=== PATIENT | female | born 1960 | race Caucasian/White ===

== ENCOUNTER 2016-10-14 06:07 | Emergency (ER) | payer BC ==
--- NOTE | 2016-10-14 08:24 | ED ORDER SUMMARY ---
..... Patient: JENNA COBIAN OrderSheet [facility] VisitID: [id number] [place] [address] 55y, F Registration Date/Time: 10/14/2016 ORDER SHEET Weight: 58.9 kg (stated) Allergies: Demerol, Dilaudid, OxyCONTIN, Augmentin GENERAL ORDERS: Wrist 3 or 4V Right Urgent (06:58 10/14/2016 Kashmir TAI) (Ack 7:04 RKaruga) (7:11 JSanders R.N.) Splint (UE) (Right) (Velcro - wrist) (08:11 10/14/2016 Kashmir TAI) (Ack 8:21 MWinterer R.N.) (8:35 JBoarmacarenay R.N.) MEDICATION ORDERS: Augmentin PO 875 mg (NOW) (06:44 10/14/2016 Williams R.N. verbal order read back to Kashmir TAI) (Ack 6:47 JSanders R.N.) (Cancelled: Allergy6:55 JSanders R.N.) Bactrim DS PO (Tablet 800-160 mg) 1 tab (NOW) (06:54 10/14/2016 Kashmir TAI) (Ack 6:55 JSanders R.N.) (6:57 JSanders R.N.) Oxycodone-APAP PO 5/325 mg (NOW) (08:11 10/14/2016 Kashmir TAI) (Ack 8:14 JBoardley R.N.) (8:15 JBoardley R.N.) IV FLUIDS: ORDER SHEET NOTES: [Electronically signed by Lester Perez R.N. (09:09 10/14/2016)] [Electronically signed by Manas Guerrier MD (23:11 10/26/2016)] [Electronically locked/signed by Lester Perez R.N. (09:09 10/14/2016)]
--- NOTE | 2016-10-14 08:24 | ED CLINICAL REPORT ---
Clinical Report - Physicians/Mid Levels [facility] [address] [place] [address] 10/14/2016 6:08 Patient: JENNA COBIAN Time Seen: 06:51 Oct 14 2016. Arrived- By private vehicle. Historian- patient. CPT: ER phys charges level 4 (#[id number]). HISTORY OF PRESENT ILLNESS Chief Complaint: DOG BITE. Location of injuries- (Location of injuries: right forearm and left wrist. This occurred just prior to arrival. Animals were fighting. ( Dog had all its shots including rabies).). The injury occurred just prior to arrival. The animal reportedly appeared well. Occurred at home. Animals were fighting. 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 REVIEW OF SYSTEMS No swelling, numbness, weakness, tingling or fever. No joint pain or enlarged lymph nodes. All systems otherwise negative, except as recorded above. PAST HISTORY See nurses notes. Abrasion(s). UTI - Urinary Tract Infection. Crush Injury, Upper Extremity. Fractured Phalanx (Finger). Back Pain. Laceration. Additional Surgeries: no known surgeries. Medications: ZyrTEC Allergy Childrens Oral. FLUoxetine HCl Oral 30mg, at bedtime. Allergies: Augmentin.(vomiting) Demerol. Dilaudid. OxyCONTIN.(nausea). SOCIAL HISTORY History of drug use: marijuana. No alcohol use. ADDITIONAL NOTES The nursing notes have been reviewed. PHYSICAL EXAM Vital Signs: 10/14/2016 06:12 BP: 120/57. HR: 46. RR: 18. O2 saturation: 98%. Temp: 97.6 F. Pain level now: 10/10. Appearance: Alert. Head: Head normal on inspection and non-tender. ENT: Mouth normal on inspection. Neck: Normal inspection. CVS: Heart sounds normal. Pulses normal. Respiratory: Chest normal on inspection. Chest nontender. Abdomen: Nontender. Back: Normal inspection. Skin: Skin warm. Normal skin color. Extremities: Right forearm: subcutaneous 1.0 cm laceration and multiple puncture wounds located in the mid and distal forearm. SEE LACERATION PROCEDURE NOTE #1. Left forearm: multiple puncture wounds (much fewer than the right arm.). Neuro: Oriented X 3. No motor deficit. No sensory deficit. LABS, X-RAYS, AND EKG X-Rays: Right wrist negative. PROGRESS AND PROCEDURES Laceration Repair: Location: right forearm. Length: 1 cm. Complexity: simple (local anesthesia used and sutured). Wound depth/shape- subcutaneous and linear. Wound is clean. Distal neuro/vascular/tendon status normal. Anesthesia provided using 2% lidocaine with bicarb. Prepped with Hibiclens. Wound explored, cleansed, irrigated and examined to the base in bloodless field extensively with normal saline. Closure of skin: interrupted 4-0 (2 sutures). Post-procedure: she is stable and there are no complications. Bleeding is controlled and neuro-vascular status is intact distal to the wound. Dressing applied. Tetanus immunization up-to-date. Course of Care: All wounds washed extensively with soap and water by staff. Bactrim 1 po percocet 1 po Patient is stable. Patient/family counseled. Disposition: Discharged. Condition: stable. CLINICAL IMPRESSION Superficial and deep dog bite to the right forearm and left forearm. Laceration to the right forearm.No foreign body present. INSTRUCTIONS Wear canvas splint until better. Protect wound and keep wound area clean. Soak in warm soapy water twice daily. Apply neosporin twice daily. Return to work in three days (Light duty: Wear splint and do not use the right hand until released by your Doctor.). Do not work for three days until better. Warnings: SEDATIVE MEDICATION: You were given sedative medication during your visit. Do not drive or operate dangerous machinery. Your Current Medications: CONTINUE TAKING THE FOLLOWING MEDICATIONS: FLUoxetine HCl Oral : 30mg at bedtime. ZyrTEC Allergy Childrens Oral. Prescription Medications: Oxycodone/APAP 5 mg/325 mg: take 1-2 tablets orally every 6 hours as needed for pain. Dispense fifteen (15). No refill. Bactrim DS 800 mg / 160 mg: take 1 tablet orally every 12 hours for 7 days. No refill. Follow-up: Follow up with your doctor in two days. Call for an appointment. Understanding of the discharge instructions verbalized by patient. (Electronically signed by Manas Guerrier MD 10/26/2016 23:11)
--- NOTE | 2016-10-14 08:24 | ED NURSING NOTES ---
Clinical Report - Nurses [facility] [address] [place] [address] 10/14/2016 6:08 [id number] TRI[facility] Triage time 06:12 Oct 14 2016. Acuity: LEVEL 4. Chief Complaint: DOG BITE. 06:19 10/14/16. SEPSIS SCREEN: Sepsis Screen. Negative (no infection suspected/documented). SUSANNAH COMA SCORE: [place] Coma Scale: 15- eyes open spontaneously (4); best verbal response- oriented x 4 (5); best motor response- obeys commands (6). --06:19 Sarah Acosta R.N. 06:12 10/14/16. BP: 120/57 (regular adult cuff) taken on the left arm. HR: 46. RR: 18. O2 saturation: 98% on room air. Temp: 97.6 F (oral). Pain level now: 01/20. --06:19 Sarah Acosta R.N. Weight: 58.9 kg stated. Height/Length: 63 inches Per Patient. BMI: 23. --06:15 Sarah Acosta R.N. Medications FLUoxetine HCl Oral 30mg, at bedtime. --06:14 Sarah Acosta R.N. ZyrTEC Allergy Childrens Oral. --06:15 Sarah Acosta R.N. Allergies Demerol. Dilaudid. OxyCONTIN.(nausea) --06:15 Sarah Acosta R.N. Augmentin.(vomiting) --06:54 Sarah Acosta R.N. The following entry was struck and corrected by Sarah Acosta R.N., 06:54 (10/14/16) Reason for correction - other(correction). <<STRICKEN ENTRY-- Augmentin. --06:54 Sarah Acosta R.N. --END STRIKE>>. History Arrived by private vehicle. Historian: patient. Location of injuries: right forearm and left wrist. This occurred just prior to arrival. Animals were fighting. ( Dog had all its shots including rabies). 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 PAST MEDICAL HX: Tetanus status: up-to-date. SOCIAL HX: Smoker- current status unknown. History of occasional drug use: marijuana. No alcohol use. No infectious disease exposure. ABUSE ASSESSMENT: No report of abuse. SELF HARM ASSESSMENT: A self harm assessment was performed. The patient answered "no" to the question "Do you have thoughts of harming or killing yourself?" and "Have you recently had thoughts about harming or killing others?". --06:19 Sarah Acosta R.N. PROBLEMS: Abrasion(s). UTI - Urinary Tract Infection. Crush Injury, Upper Extremity. Fractured Phalanx (Finger). Back Pain. Laceration. --06:16 Sarah Acosta R.N. ADDITIONAL SURGERIES: no known surgeries. Interventions ID band on patient. To treatment room. --06:19 Sarah Acosta R.N. PHYSICAL ASSESSMENT Ambulatory to room. GENERAL / NEURO / PSYCH: Alert. Oriented X 4. Appears in no acute distress. Appears in pain. HEENT: Pupils equal, round and reactive to light. Head non-tender. RESPIRATORY: Respirations not labored. Breath sounds within normal limits. CVS: Normal heart rate and rhythm. Pulses within normal limits. Capillary refill less than 2 seconds. GI / : Abdomen soft and nontender. EXTREMITIES: Extremities exhibit normal ROM. Right forearm: tenderness, swelling, erythema and multiple puncture wounds. Left wrist: tenderness, swelling, erythema and multiple puncture wounds. SKIN: Skin is warm and dry. --06:20 aSrah Acosta R.N. NURSING PROGRESS NOTES 06:20 10/14/16. The plan of care for this patient has been created. Extremity elevated. Reassurance given. Two patient identifiers checked. Call light placed in reach. Side rails up x 1. Bed placed in lowest position. Brakes of bed on. Patient ready for evaluation- chart flagged and ED physician notified. --06:20 Sarah Acosta R.N. 06:29 10/14/16. ( Wounds cleansed bilat arms with hibacleanse and sterile water). --06:29 Sarah Acosta R.N. 06:57 10/14/2016 Bactrim DS (Sulfamethoxazole-TMP DS) PO Tablets 1 tab given. Allergies verified and confirmed 5 rights. --06:57 Sarah Acosta R.N. 07:01 10/14/16. ( Xray in with patient). --07:01 Sarah Acosta R.N. late entry - 07:05 10/14/16. ( xray done). --07:10 Sarah Acosta R.N. Care transferred and report given (VIKRAM Saucedo). --07:10 Sarah Acosta R.N. 08:15 10/14/2016 Oxycodone-APAP (Oxycodone-Acetaminophen) PO 5/325 mg Tablets 1 tab given. Allergies verified, confirmed 5 rights and sedative warning given to the patient. --08:15 Lester Perez R.N. Applied clean dressing consisting of gauze, following the application of antibiotic ointment (bacitracin). Secured with tape. Velcro upper extremity splint applied to right forearm. Distal pulses intact, sensation intact and motor within normal limits. --08:55 Abelardo Barron, ER Tech1. DISPOSITION / DISCHARGE 08:42 10/14/16. Condition at departure: improved. The goals identified in the patient's plan of care were met. No learning barriers present. Discharge instructions provided and reviewed with the patient. Reviewed warnings. Reviewed medication(s). Treatments reviewed. Patient verbalized understanding. Written instructions provided in Latvian. ( Pt will follow up in 2 days with PCP or walk in clinic for wound check. Pt states Tetanus is up to date). The patient was discharged by the physician. She was discharged home. She left the Emergency Department ambulatory. FALL RISK ASSESSMENT: Fall risk assessment completed. No fall risk identified. --08:42 Lester Perez R.N. 08:39 10/14/16. BP: 118/68. HR: 66. RR: 16. O2 saturation: 99% on room air. Temp: 98.2 F (oral). Pain level now: 06/20. --08:42 Lester Perez R.N. 08:44 10/14/16. Departure time: 08:44 Oct 14 2016. --08:44 Lester Perez R.N. 08:45 10/14/16. ( One suture pack used for wound repair). --08:45 Lester Perez R.N. Locked/Released at 10/14/2016 9:09 by Lester Perez R.N.
--- NOTE | 2016-10-14 08:24 | ED NURSING NOTES ---
Clinical Report - Nurses [facility] [address] [place] [address] 10/14/2016 6:08 [id number] Triage time 06:12 Oct 14 2016. Acuity: LEVEL 4. Chief Complaint: DOG BITE. 06:19 10/14/16. SEPSIS SCREEN: Sepsis Screen. Negative (no infection suspected/documented). SUSANNAH COMA SCORE: [place] Coma Scale: 15- eyes open spontaneously (4); best verbal response- oriented x 4 (5); best motor response- obeys commands (6). --06:19 Sarah Acosta R.N. 06:12 10/14/16. BP: 120/57 (regular adult cuff) taken on the left arm. HR: 46. RR: 18. O2 saturation: 98% on room air. Temp: 97.6 F (oral). Pain level now: 01/20. --06:19 Sarah Acosta R.N. Weight: 58.9 kg stated. Height/Length: 63 inches Per Patient. BMI: 23. --06:15 Sarah Acosta R.N. Medications FLUoxetine HCl Oral 30mg, at bedtime. --06:14 Sarah Acosta R.N. ZyrTEC Allergy Childrens Oral. --06:15 Sarah Acosta R.N. Allergies Demerol. Dilaudid. OxyCONTIN.(nausea) --06:15 Sarah Acosta R.N. Augmentin.(vomiting) --06:54 Sarah Acosta R.N. The following entry was struck and corrected by Sarah Acosta R.N., 06:54 (10/14/16) Reason for correction - other(correction). <<STRICKEN ENTRY-- Augmentin. --06:54 Sarah Acosta R.N. --END STRIKE>>. History Arrived by private vehicle. Historian: patient. Location of injuries: right forearm and left wrist. This occurred just prior to arrival. Animals were fighting. ( Dog had all its shots including rabies). 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 PAST MEDICAL HX: Tetanus status: up-to-date. SOCIAL HX: Smoker- current status unknown. History of occasional drug use: marijuana. No alcohol use. No infectious disease exposure. ABUSE ASSESSMENT: No report of abuse. SELF HARM ASSESSMENT: A self harm assessment was performed. The patient answered "no" to the question "Do you have thoughts of harming or killing yourself?" and "Have you recently had thoughts about harming or killing others?". --06:19 Sarah Acosta R.N. PROBLEMS: Abrasion(s). UTI - Urinary Tract Infection. Crush Injury, Upper Extremity. Fractured Phalanx (Finger). Back Pain. Laceration. --06:16 Sarah Acosta R.N. ADDITIONAL SURGERIES: no known surgeries. Interventions ID band on patient. To treatment room. --06:19 Sarah Acosta R.N. PHYSICAL ASSESSMENT Ambulatory to room. GENERAL / NEURO / PSYCH: Alert. Oriented X 4. Appears in no acute distress. Appears in pain. HEENT: Pupils equal, round and reactive to light. Head non-tender. RESPIRATORY: Respirations not labored. Breath sounds within normal limits. CVS: Normal heart rate and rhythm. Pulses within normal limits. Capillary refill less than 2 seconds. GI / : Abdomen soft and nontender. EXTREMITIES: Extremities exhibit normal ROM. Right forearm: tenderness, swelling, erythema and multiple puncture wounds. Left wrist: tenderness, swelling, erythema and multiple puncture wounds. SKIN: Skin is warm and dry. --06:20 Sarah Acosta R.N. NURSING PROGRESS NOTES 06:20 10/14/16. The plan of care for this patient has been created. Extremity elevated. Reassurance given. Two patient identifiers checked. Call light placed in reach. Side rails up x 1. Bed placed in lowest position. Brakes of bed on. Patient ready for evaluation- chart flagged and ED physician notified. --06:20 Sarah Acosta R.N. 06:29 10/14/16. ( Wounds cleansed bilat arms with hibacleanse and sterile water). --06:29 Sarah Acosta R.N. 06:57 10/14/2016 Bactrim DS (Sulfamethoxazole-TMP DS) PO Tablets 1 tab given. Allergies verified and confirmed 5 rights. --06:57 Sarah Acosta R.N. 07:01 10/14/16. ( Xray in with patient). --07:01 Sarah Acosta R.N. late entry - 07:05 10/14/16. ( xray done). --07:10 Sarah Acosta R.N. Care transferred and report given (VIKRAM Saucedo). --07:10 Sarah Acosta R.N. 08:15 10/14/2016 Oxycodone-APAP (Oxycodone-Acetaminophen) PO 5/325 mg Tablets 1 tab given. Allergies verified, confirmed 5 rights and sedative warning given to the patient. --08:15 Lester Perez R.N. Applied clean dressing consisting of gauze, following the application of antibiotic ointment (bacitracin). Secured with tape. Velcro upper extremity splint applied to right forearm. Distal pulses intact, sensation intact and motor within normal limits. --08:55 Abelardo Barron, ER Tech1. DISPOSITION / DISCHARGE 08:42 10/14/16. Condition at departure: improved. The goals identified in the patient's plan of care were met. No learning barriers present. Discharge instructions provided and reviewed with the patient. Reviewed warnings. Reviewed medication(s). Treatments reviewed. Patient verbalized understanding. Written instructions provided in Togolese. ( Pt will follow up in 2 days with PCP or walk in clinic for wound check. Pt states Tetanus is up to date). The patient was discharged by the physician. She was discharged home. She left the Emergency Department ambulatory. FALL RISK ASSESSMENT: Fall risk assessment completed. No fall risk identified. --08:42 Lester Perez R.N. 08:39 10/14/16. BP: 118/68. HR: 66. RR: 16. O2 saturation: 99% on room air. Temp: 98.2 F (oral). Pain level now: 06/20. --08:42 Lester Perez R.N. 08:44 10/14/16. Departure time: 08:44 Oct 14 2016. --08:44 Lester Perez R.N. 08:45 10/14/16. ( One suture pack used for wound repair). --08:45 Lester Perez R.N. Locked/Released at 10/14/2016 9:09 by Lester Perez R.N.
--- NOTE | 2016-10-14 08:24 | ED ORDER SUMMARY ---
..... Patient: JENNA COBIAN OrderSheet [facility] VisitID: [id number] [place] [address] 55y, F Registration Date/Time: 10/14/2016 ORDER SHEET Weight: 58.9 kg (stated) Allergies: Demerol, Dilaudid, OxyCONTIN, Augmentin GENERAL ORDERS: Wrist 3 or 4V Right Urgent (06:58 10/14/2016 Kashmir TAI) (Ack 7:04 RKaruga) (7:11 JSanders R.N.) Splint (UE) (Right) (Velcro - wrist) (08:11 10/14/2016 Kashmir TAI) (Ack 8:21 MWinterer R.N.) (8:35 JBoarmacarenay R.N.) MEDICATION ORDERS: Augmentin PO 875 mg (NOW) (06:44 10/14/2016 Williams R.N. verbal order read back to Kashmir TAI) (Ack 6:47 JSanders R.N.) (Cancelled: Allergy6:55 JSanders R.N.) Bactrim DS PO (Tablet 800-160 mg) 1 tab (NOW) (06:54 10/14/2016 Kashmir TAI) (Ack 6:55 JSanders R.N.) (6:57 JSanders R.N.) Oxycodone-APAP PO 5/325 mg (NOW) (08:11 10/14/2016 Kashmir TAI) (Ack 8:14 JBoardley R.N.) (8:15 JBoardley R.N.) IV FLUIDS: ORDER SHEET NOTES: [Electronically signed by Lester Perez R.N. (09:09 10/14/2016)] [Electronically signed by Manas Guerrier MD (23:11 10/26/2016)] [Electronically locked/signed by Lester Perez R.N. (09:09 10/14/2016)]
--- NOTE | 2016-10-14 08:24 | ED CLINICAL REPORT ---
Clinical Report - Physicians/Mid Levels [facility] [address] [place] [address] 10/14/2016 6:08 Patient: JENNA COBIAN Time Seen: 06:51 Oct 14 2016. Arrived- By private vehicle. Historian- patient. CPT: ER phys charges level 4 (#[id number]). HISTORY OF PRESENT ILLNESS Chief Complaint: DOG BITE. Location of injuries- (Location of injuries: right forearm and left wrist. This occurred just prior to arrival. Animals were fighting. ( Dog had all its shots including rabies).). The injury occurred just prior to arrival. The animal reportedly appeared well. Occurred at home. Animals were fighting. 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 REVIEW OF SYSTEMS No swelling, numbness, weakness, tingling or fever. No joint pain or enlarged lymph nodes. All systems otherwise negative, except as recorded above. PAST HISTORY See nurses notes. Abrasion(s). UTI - Urinary Tract Infection. Crush Injury, Upper Extremity. Fractured Phalanx (Finger). Back Pain. Laceration. Additional Surgeries: no known surgeries. Medications: ZyrTEC Allergy Childrens Oral. FLUoxetine HCl Oral 30mg, at bedtime. Allergies: Augmentin.(vomiting) Demerol. Dilaudid. OxyCONTIN.(nausea). SOCIAL HISTORY History of drug use: marijuana. No alcohol use. ADDITIONAL NOTES The nursing notes have been reviewed. PHYSICAL EXAM Vital Signs: 10/14/2016 06:12 BP: 120/57. HR: 46. RR: 18. O2 saturation: 98%. Temp: 97.6 F. Pain level now: 10/10. Appearance: Alert. Head: Head normal on inspection and non-tender. ENT: Mouth normal on inspection. Neck: Normal inspection. CVS: Heart sounds normal. Pulses normal. Respiratory: Chest normal on inspection. Chest nontender. Abdomen: Nontender. Back: Normal inspection. Skin: Skin warm. Normal skin color. Extremities: Right forearm: subcutaneous 1.0 cm laceration and multiple puncture wounds located in the mid and distal forearm. SEE LACERATION PROCEDURE NOTE #1. Left forearm: multiple puncture wounds (much fewer than the right arm.). Neuro: Oriented X 3. No motor deficit. No sensory deficit. LABS, X-RAYS, AND EKG X-Rays: Right wrist negative. PROGRESS AND PROCEDURES Laceration Repair: Location: right forearm. Length: 1 cm. Complexity: simple (local anesthesia used and sutured). Wound depth/shape- subcutaneous and linear. Wound is clean. Distal neuro/vascular/tendon status normal. Anesthesia provided using 2% lidocaine with bicarb. Prepped with Hibiclens. Wound explored, cleansed, irrigated and examined to the base in bloodless field extensively with normal saline. Closure of skin: interrupted 4-0 (2 sutures). Post-procedure: she is stable and there are no complications. Bleeding is controlled and neuro-vascular status is intact distal to the wound. Dressing applied. Tetanus immunization up-to-date. Course of Care: All wounds washed extensively with soap and water by staff. Bactrim 1 po percocet 1 po Patient is stable. Patient/family counseled. Disposition: Discharged. Condition: stable. CLINICAL IMPRESSION Superficial and deep dog bite to the right forearm and left forearm. Laceration to the right forearm.No foreign body present. INSTRUCTIONS Wear canvas splint until better. Protect wound and keep wound area clean. Soak in warm soapy water twice daily. Apply neosporin twice daily. Return to work in three days (Light duty: Wear splint and do not use the right hand until released by your Doctor.). Do not work for three days until better. Warnings: SEDATIVE MEDICATION: You were given sedative medication during your visit. Do not drive or operate dangerous machinery. Your Current Medications: CONTINUE TAKING THE FOLLOWING MEDICATIONS: FLUoxetine HCl Oral : 30mg at bedtime. ZyrTEC Allergy Childrens Oral. Prescription Medications: Oxycodone/APAP 5 mg/325 mg: take 1-2 tablets orally every 6 hours as needed for pain. Dispense fifteen (15). No refill. Bactrim DS 800 mg / 160 mg: take 1 tablet orally every 12 hours for 7 days. No refill. Follow-up: Follow up with your doctor in two days. Call for an appointment. Understanding of the discharge instructions verbalized by patient. (Electronically signed by Manas Guerrier MD 10/26/2016 23:11)
--- NOTE | 2016-10-14 09:11 | DIAGNOSTIC IMAGING REPORT ---
PROCEDURE: XR WRIST MIN 3 VIEWS - RIGHT INDICATION: TRAUMA/INJURY TECHNIQUE: Four views. COMPARISON: None. FINDINGS: Osseous structures and joint spaces are normal. If an occult scaphoid fracture is suspected clinically, follow-up examination in 10-14 days may be of assistance. IMPRESSION: 1. Normal right wrist.
--- NOTE | 2016-10-26 23:11 | ED DISCHARGE INSTRUCTIONS ---
Patient: JENNA COBIAN General Instructions [facility] VisitID: [id number] [place] [address] 55y, F Registration Date/Time: 10/14/2016 Superficial and deep dog bite to the right forearm and left forearm. Laceration to the right forearm.No foreign body present. INSTRUCTIONS Wear canvas splint until better. Protect wound and keep wound area clean. Soak in warm soapy water twice daily. Apply neosporin twice daily. Return to work in three days (Light duty: Wear splint and do not use the right hand until released by your Doctor.). Do not work for three days until better. Warnings: SEDATIVE MEDICATION: You were given sedative medication during your visit. Do not drive or operate dangerous machinery. Your Current Medications: CONTINUE TAKING THE FOLLOWING MEDICATIONS: FLUoxetine HCl Oral : 30mg at bedtime. ZyrTEC Allergy Childrens Oral. Prescription Medications: Oxycodone/APAP 5 mg/325 mg: take 1-2 tablets orally every 6 hours as needed for pain. Dispense fifteen (15). No refill. Bactrim DS 800 mg / 160 mg: take 1 tablet orally every 12 hours for 7 days. No refill. Follow-up: Follow up with your doctor in two days. Call for an appointment. Understanding of the discharge instructions verbalized by patient. ADDITIONAL INFORMATION Dog Bite If a dog has bitten you and the wound is deep enough to break the skin, an infection may occur. Therefore, you should watch for the warning signs listed below. The doctor may not close the wound completely. This is to allow fluid to drain in the event of an infection. Home Care Watch the wound for signs of infection listed below. In certain types of bites, antibiotics may be prescribed. Begin taking these as soon as possible, as directed until they are all gone. Rabies Prevention If you live in an area where rabies occurs in wild animals, the rabies virus can be passed to cats and dogs. An infected animal can pass the rabies virus to you during a bite. If ahealthy-looking pet dog has bitten you, it should be kept in a secure area for the next 10 days to watch for signs of illness. If the pet card seller wont cooperate with you, contact the [facility] animal control department (or local law enforcement). If the animal becomes ill or dies [id number] days, contact your animal control department at once. The animal must be tested for rabies. If the animal stays healthy for the next 10 days, then there is no danger of rabies in the dog or you. Pets fully vaccinated against rabies (2 shots) are at very low risk for the infection. However, because human rabies is almost always fatal, any biting dog should be kept in confinement for 10 days as an extra precaution. If a stray dog bit you, contact the animal control department. They can provide information on capture, quarantine, and animal rabies testing. If you are unable to locate the animal that bit you in the next 2days, and if rabies exists in your region, you must be evaluated for the rabies vaccine series. Contact your doctor or return here promptly. All animal bites should be reported to the [facility] animal control department. If you were not given a form to fill out, you can report it yourself by calling. Follow Up with your doctor as advised. Most skin wounds heal within 10 days. However, an infection may occur even with proper treatment. Check your woundevery 6 hoursfor 2 days, then at least once a day for the next two days for the signs of infection listed below. Get Prompt Medical Attention if any of the following occur: Signs of infection: Spreading redness Increased pain or swelling Fever of 100.4F (38C) or higher, or as directed by your healthcare provider Colored fluid or pus draining from the wound Headache, confusion, strange behavior, or a seizure (signs of a rabies infection) Laceration (All Closures) Alaceration is a cut through the skin. This will usually require stitches (sutures) or francisco if it is deep. Minor cuts may be treated with a surgical tape closure orskin glue. Home care The following guidelines will help you care for your laceration at home: Extremity, face, or trunk wounds Keep the wound clean and dry. If a bandage was applied and it becomes wet or dirty, replace it. Otherwise, leave it in place for the first 24 hours. If stitches or francisco were used, clean the wound daily. After removing the bandage, wash the area with soap and water. Use a wet cotton swab to loosen and remove any blood or crust that forms. The doctor may prescribe an antibiotic cream or ointment to prevent infection. Do not stop taking this medication until you have finished the prescribed course or the doctor tells you to stop. The doctor may also prescribe medications for pain. Follow the doctors instructions for taking these medications. You may remove the bandage to shower as usual after the first 24 hours, but do not soak the area in water (no swimming) until the stitches or francisco are removed. If surgical tape was used, keep the area clean and dry. If it becomes wet, blot it dry with a towel. If skin glue was used, do not scratch, rub, or pick at the adhesive film. Do not place tape directly over the film. Do not apply liquid, ointment, or creams to the wound while the film is in place. Do not clean the wound with peroxide and do not apply ointments. Avoid activities that cause heavy sweating until the film has fallen off. Protect the wound from prolonged exposure to sunlight or tanning lamps. You may shower as usual but do not soak the wound in water (no baths or swimming). The film will fall off by itself in 510 days. Scalp wounds During the first two days, you may carefully rinse your hair in the shower to remove blood, glass or dirt particles. After two days, you may shower and shampoo your hair normally. Do not soak your scalp in the tub or go swimming until the stitches or francisco have been removed. Talk with your doctor before applying any antibiotic ointment to the wound. Mouth wounds Eat soft foods to reduce pain. If the cut is inside of your mouth, clean by rinsing after each meal and at bedtime with a mixture of equal parts water and hydrogen peroxide (do not swallow!). Or, you can use a cotton swab to directly apply hydrogen peroxide onto the cut. Mouth wounds can be painful when eating. You may use an [id number] local numbing solution for pain relief. If this is not available, you may use any numbing solution for teething babies. You may apply this directly to the sores with a cotton-tip swab or with your finger. Follow-up care Follow up with your health care provider. Most skin wounds heal within ten days. Mouth and facial wounds heal within five days. However, even with proper treatment, a wound infection may sometimes occur. Therefore, you should check the wound daily for signs of infection listed below. Stitches should be removed from the face within five days; stitches and francisco should be removed from other parts of the body within 714 days. If dissolving stitches were used in the mouth, these will fall out or dissolve without the need for removal. If tape closures were used, remove them yourself if they have not fallen off after 7 days. Ifskin glue was used, the film will fall off by itself in 510 days. When to seek medical care Get prompt medical attention if any of these occur: Bleeding not controlled by direct pressure Signs of infection, including increasing pain in the wound, increasing wound redness or swelling, or pus coming from the wound Fever of 100.4F (38C) or higher, or as directed by your health care provider Stitches or francisco come apart or fall out or surgical tape falls off before 7 days Wound edges re-open Wrist Splint: Velcro A splint is designed to prevent movement of the bones, muscles and tendons of the wrist. Velcro wrist splints are used because of their comfort and convenience. In certain conditions, the splint can be removed when bathing or changing clothes. The condition you are being treated for will determine how long you should wear the splint and if it is safe to remove your splint before your next visit. If you are unsure, ask your nurse or doctor. Get Prompt Medical Attention if any of the following occur: -- Increased pain or swelling under the splint or in the hand or fingers -- Fingers or hand becomes cold, blue, numb or tingly Bandage Change If the bandage becomes wet or dirty, replace it. Otherwise, leave it in place for the first 24 hours. Then once a day: After removing the bandage, wash the area with soap and water. Use a wet cotton swab to loosen and remove any blood or crust that forms on the wound. After cleaning, apply a thin layer of antibiotic ointment or cream. Reapply the bandage. You may shower as usual after the first 24 hours. If the bandage is on an arm or leg, cover it with a plastic bag rubber banded at both ends before showering. No tub baths or swimming until the bandage is removed and the wound healed (at least 7 days). Oxycodone Hydrochloride, Acetaminophen Oral tablet What is this medicine? ACETAMINOPHEN; OXYCODONE (a set a MIAH leon fen; ox i KOE done) is a pain reliever. It is used to treat mild to moderate pain. How should I use this medicine? Take this medicine by mouth with a full glass of water. Follow the directions on the prescription label. Take your medicine at regular intervals. Do not take your medicine more often than directed. Talk to your insurance sales representative regarding the use of this medicine in children. Special care may be needed. Patients over 65 years old may have a stronger reaction and need a smaller dose. What side effects may I notice from receiving this medicine? Side effects that you should report to your doctor or health infant caregiver as soon as possible: allergic reactions like skin rash, itching or hives, swelling of the face, lips, or tongue breathing difficulties, wheezing confusion light headedness or fainting spells severe stomach pain yellowing of the skin or the whites of the eyes Side effects that usually do not require medical attention (report to your doctor or health infant caregiver if they continue or are bothersome): dizziness drowsiness nausea vomiting What may interact with this medicine? alcohol antihistamines barbiturates like amobarbital, butalbital, butabarbital, methohexital, pentobarbital, phenobarbital, thiopental, and secobarbital benztropine drugs for bladder problems like solifenacin, trospium, oxybutynin, tolterodine, hyoscyamine, and methscopolamine drugs for breathing problems like ipratropium and tiotropium drugs for certain stomach or intestine problems like propantheline, homatropine methylbromide, glycopyrrolate, atropine, belladonna, and dicyclomine general anesthetics like etomidate, ketamine, nitrous oxide, propofol, desflurane, enflurane, halothane, isoflurane, and sevoflurane medicines for depression, anxiety, or psychotic disturbances medicines for sleep muscle relaxants naltrexone narcotic medicines (opiates) for pain phenothiazines like perphenazine, thioridazine, chlorpromazine, mesoridazine, fluphenazine, prochlorperazine, promazine, and trifluoperazine scopolamine tramadol trihexyphenidyl What if I miss a dose? If you miss a dose, take it as soon as you can. If it is almost time for your next dose, take only that dose. Do not take double or extra doses. Where should I keep my medicine? Keep out of the reach of children. This medicine can be abused. Keep your medicine in a safe place to protect it from theft. Do not share this medicine with anyone. Selling or giving away this medicine is dangerous and against the law. Store at room temperature between 20 and 25 degrees C (68 and 77 degrees F). Keep container tightly closed. Protect from light. This medicine may cause accidental overdose and if it is taken by other adults, children, or pets. Flush any unused medicine down the toilet to reduce the chance of harm. Do not use the medicine after the expiration date. What should I tell my health care provider before I take this medicine? They need to know if you have any of these conditions: brain tumor Crohn's disease, inflammatory bowel disease, or ulcerative colitis drink more than 3 alcohol containing drinks per day drug abuse or addiction head injury heart or circulation problems kidney disease or problems going to the bathroom liver disease lung disease, asthma, or breathing problems an unusual or allergic reaction to acetaminophen, oxycodone, other opioid analgesics, other medicines, foods, dyes, or preservatives or trying to get breast-feeding What should I watch for while using this medicine? Tell your doctor or health infant caregiver if your pain does not go away, if it gets worse, or if you have new or a different type of pain. You may develop tolerance to the medicine. Tolerance means that you will need a higher dose of the medication for pain relief. Tolerance is normal and is expected if you take this medicine for a long time. Do not suddenly stop taking your medicine because you may develop a severe reaction. Your body becomes used to the medicine. This does NOT mean you are addicted. Addiction is a behavior related to getting and using a drug for a non-medical reason. If you have pain, you have a medical reason to take pain medicine. Your doctor will tell you how much medicine to take. If your doctor wants you to stop the medicine, the dose will be slowly lowered over time to avoid any side effects. You may get drowsy or dizzy. Do not drive, use machinery, or do anything that needs mental alertness until you know how this medicine affects you. Do not stand or sit up quickly, especially if you are an older patient. This reduces the risk of dizzy or fainting spells. Alcohol may interfere with the effect of this medicine. Avoid alcoholic drinks. There are different types of narcotic medicines (opiates) for pain. If you take more than one type at the same time, you may have more side effects. Give your health care provider a list of all medicines you use. Your doctor will tell you how much medicine to take. Do not take more medicine than directed. Call emergency for help if you have problems breathing. The medicine will cause constipation. Try to have a bowel movement at least every 2 to 3 days. If you do not have a bowel movement for 3 days, call your doctor or health infant caregiver. Do not take Tylenol (acetaminophen) or medicines that have acetaminophen with this medicine. Too much acetaminophen can be very dangerous. Many nonprescription medicines contain acetaminophen. Always read the labels carefully to avoid taking more acetaminophen. Sulfamethoxazole, Trimethoprim Oral tablet What is this medicine? SULFAMETHOXAZOLE; TRIMETHOPRIM or SMX-TMP (suhl fuh meth OK cathy zohl; trye METH oh prim) is a combination of a sulfonamide antibiotic and a second antibiotic, trimethoprim. It is used to treat or prevent certain kinds of bacterial infections. It will not work for colds, flu, or other viral infections. How should I use this medicine? Take this medicine by mouth with a full glass of water. Follow the directions on the prescription label. Take your medicine at regular intervals. Do not take it more often than directed. Do not skip doses or stop your medicine early. Talk to your insurance sales representative regarding the use of this medicine in children. Special care may be needed. This medicine has been used in children as young as 2 months of age. What side effects may I notice from receiving this medicine? Side effects that you should report to your doctor or health infant caregiver as soon as possible: allergic reactions like skin rash or hives, swelling of the face, lips, or tongue breathing problems fever or chills, sore throat irregular heartbeat, chest pain joint or muscle pain pain or difficulty passing urine red pinpoint spots on skin redness, blistering, peeling or loosening of the skin, including inside the mouth unusual bleeding or bruising unusually weak or tired yellowing of the eyes or skin Side effects that usually do not require medical attention (report to your doctor or health infant caregiver if they continue or are bothersome): diarrhea dizziness headache loss of appetite nausea, vomiting nervousness What may interact with this medicine? Do not take this medicine with any of the following medications: aminobenzoate potassium dofetilide metronidazole This medicine may also interact with the following medications: KAREL inhibitors like benazepril, enalapril, lisinopril, and ramipril cyclosporine digoxin diuretics indomethacin medicines for diabetes methenamine methotrexate phenytoin potassium supplements pyrimethamine sulfinpyrazone tricyclic antidepressants warfarin What if I miss a dose? If you miss a dose, take it as soon as you can. If it is almost time for your next dose, take only that dose. Do not take double or extra doses. Where should I keep my medicine? Keep out of the reach of children. Store at room temperature between 20 to 25 degrees C (68 to 77 degrees F). Protect from light. Throw away any unused medicine after the expiration date. What should I tell my health care provider before I take this medicine? They need to know if you have any of these conditions: anemia asthma being treated with anticonvulsants if you frequently drink alcohol containing drinks kidney disease liver disease low level of folic acid or uodmooi-[id number] dehydrogenase poor nutrition or malabsorption porphyria severe allergies thyroid disorder an unusual or allergic reaction to sulfamethoxazole, trimethoprim, sulfa drugs, other medicines, foods, dyes, or preservatives or trying to get breast-feeding What should I watch for while using this medicine? Tell your doctor or health infant caregiver if your symptoms do not improve. Drink several glasses of water a day to reduce the risk of kidney problems. Do not treat diarrhea with over the counter products. Contact your doctor if you have diarrhea that lasts more than 2 days or if it is severe and watery. This medicine can make you more sensitive to the sun. Keep out of the sun. If you cannot avoid being in the sun, wear protective clothing and use a sunscreen. Do not use sun lamps or tanning beds/booths. You have been given the following additional information: Dog Bite Laceration, All Wrist Splint, Velcro Dressing Change Oxycodone Hydrochloride, Acetaminophen Oral tablet Sulfamethoxazole, Trimethoprim Oral tablet Return to work in three days (Light duty: Wear splint and do not use the right hand until released by your Doctor.). Do not work for three days until better. (Electronically signed by Manas Guerrier MD 10/26/2016 23:11)
--- NOTE | 2016-10-26 23:11 | ED MED RECONCILIATION SUMMARY ---
Patient: JENNA COBIAN Medication Reconciliation Report [facility] VisitID: [id number] [address] [place] [address] 55y, F Registration Date/Time: 10/14/2016 Weight: 58.9 kg Height/Length: 63 in. BMI: 23.0 ALLERGIES: Augmentin, Demerol, Dilaudid, OxyCONTIN The patient's Home Medications are listed below: CONTINUE TAKING THE FOLLOWING MEDICATIONS: FLUoxetine HCl Oral 30mg, at bedtime ZyrTEC Allergy Childrens Oral The source(s) of the original Home Medication information: Not obtained. The following Medications were given to the patient in the Emergency Department: Bactrim DS [PO] PO 1 tab, administered: 10/14/2016 6:57:00 AM Oxycodone-APAP [PO] PO 1 tab, administered: 10/14/2016 8:15:00 AM The following Medications were prescribed to the patient: Oxycodone/APAP 5 mg/325 mg: take 1-2 tablets orally every 6 hours as needed for pain. Dispense fifteen (15). No refill. -- Manas Guerrier MD Bactrim DS 800 mg / 160 mg: take 1 tablet orally every 12 hours for 7 days. No refill. -- Manas Guerrier MD
--- NOTE | 2016-10-26 23:11 | ED MAR SUMMARY ---
..... Medication Administration Record [facility] [address] [place] [address] Patient: JENNA COBIAN Visit ID: [id number] 55y, F Weight: 58.9 kg Height/Length: 63 in BMI: 23 ALLERGIES: Demerol, Dilaudid, OxyCONTIN, Augmentin Given 06:57 10/14/2016 Sarah Acosta R.N. Medication Administered: BACTRIM DS [PO] (SULFAMETHOXAZOLE-TMP DS), Dose: 1 tab Tablets PO. Medication Ordered: Bactrim DS PO (Tablet 800-160 mg) 1 tab (NOW). Given 08:15 10/14/2016 Lester Perez R.N. Medication Administered: OXYCODONE-APAP [PO] (OXYCODONE-ACETAMINOPHEN), Dose: 1 tab 5/325 mg Tablets PO. Medication Ordered: Oxycodone-APAP PO 5/325 mg (NOW).
--- NOTE | 2016-10-26 23:11 | ED MED RECONCILIATION SUMMARY ---
Patient: JENNA COBIAN Medication Reconciliation Report [facility] VisitID: [id number] [address] [place] [address] 55y, F Registration Date/Time: 10/14/2016 Weight: 58.9 kg Height/Length: 63 in. BMI: 23.0 ALLERGIES: Augmentin, Demerol, Dilaudid, OxyCONTIN The patient's Home Medications are listed below: CONTINUE TAKING THE FOLLOWING MEDICATIONS: FLUoxetine HCl Oral 30mg, at bedtime ZyrTEC Allergy Childrens Oral The source(s) of the original Home Medication information: Not obtained. The following Medications were given to the patient in the Emergency Department: Bactrim DS [PO] PO 1 tab, administered: 10/14/2016 6:57:00 AM Oxycodone-APAP [PO] PO 1 tab, administered: 10/14/2016 8:15:00 AM The following Medications were prescribed to the patient: Oxycodone/APAP 5 mg/325 mg: take 1-2 tablets orally every 6 hours as needed for pain. Dispense fifteen (15). No refill. -- Manas Guerrier MD Bactrim DS 800 mg / 160 mg: take 1 tablet orally every 12 hours for 7 days. No refill. -- Manas Guerrier MD
--- NOTE | 2016-10-26 23:11 | ED MAR SUMMARY ---
..... Medication Administration Record [facility] [address] [place] [address] Patient: JENNA COBIAN Visit ID: [id number] 55y, F Weight: 58.9 kg Height/Length: 63 in BMI: 23 ALLERGIES: Demerol, Dilaudid, OxyCONTIN, Augmentin Given 06:57 10/14/2016 Sarah Acosta R.N. Medication Administered: BACTRIM DS [PO] (SULFAMETHOXAZOLE-TMP DS), Dose: 1 tab Tablets PO. Medication Ordered: Bactrim DS PO (Tablet 800-160 mg) 1 tab (NOW). Given 08:15 10/14/2016 Lester Perez R.N. Medication Administered: OXYCODONE-APAP [PO] (OXYCODONE-ACETAMINOPHEN), Dose: 1 tab 5/325 mg Tablets PO. Medication Ordered: Oxycodone-APAP PO 5/325 mg (NOW).
== END 2016-10-14 08:44 | disposition home or self-care (01) ==
LOC: ED SRH 06:07
DX: S51.811A Laceration without foreign body of right forearm, initial encounter (principal); S50.871A Other superficial bite of right forearm, initial encounter; W54.0XXA Bitten by dog, initial encounter; F12.10 Cannabis abuse, uncomplicated; Y92.009 Unspecified place in unspecified non-institutional (private) residence as the place of occurrence of the external cause